=== PATIENT | female | born 1945 | race Caucasian/White ===

== ENCOUNTER 2023-09-17 23:52 | Emergency (ER) | payer OTHER, MEDICARE ==
[2023-09-18] MEDS ORDERED: NA CHLORIDE 0.9% 1,000 ML ONE (00:55)
[2023-09-18 00:56] LABS: Absolute Lymphocytes (CBC) 0.7 K/uL (0.7-4.9); Hematocrit 36.8 % (36.0-45.0); Lymphocytes % 13.1 % (15.3-44.8); MCV 87.4 fL (80-100); MPV 7.8 fL (7.6-11.3); Platelets 133 thou/uL (152-406); RBC Red Blood Cell Count 4.22 M/uL (3.86-4.86)
[2023-09-18 01:05] LABS: Protime INR 1.21
[2023-09-18 01:09] LABS: Specific Gravity 1.026 (1.005-1.030); Urine Bacteria <20 /HPF (<20); Urine Bilirubin NEGATIVE (Negative); Urine Blood Trace (Negative); Urine Clarity Extremely Turbid (Clear); Urine Color Yellow (Yellow); Urine Glucose NEGATIVE (Negative); Urine Mucus 4+ /HPF (None Seen); Urine Protein 1+ (Negative); Urine RBC <5 /HPF (None Seen); Urine Urobilinogen Normal (Normal); Urine pH 5.5 (5.0-7.0)
[2023-09-18 01:15] LABS: Albumin 3.5 g/dL (3.4-5.0); Bilirubin Direct 0.2 mg/dL (0-0.2); Bilirubin Indirect, Calculated 0.5 mg/dL (0.2-0.8); Bilirubin Total 0.7 mg/dL (0.2-1.0); Potassium 3.7 mEq/L (3.5-5.1); Protein, Total 7.8 g/dL (6.4-8.2); Troponin High Sensitivity 12.2 pg/mL (<58.9)
[2023-09-18 01:33] LABS: SARS-COV-2 RT PCR NEGATIVE (NEGATIVE)
[2023-09-18] MEDS ORDERED: ACETAMINOPHEN 500 MG TAB ONE (02:24)
[2023-09-18] MEDS ORDERED: NA CHLORIDE 0.9% 500 ML ONE (03:00)
--- NOTE | 2023-09-18 03:39 | EDPHYS ---
Physician Documentation [facility] Name: Yris Reich Age: 78 yrs Sex: Female : 1945 Arrival Date: 09/17/2023 Time: 23:52 Bed 12 Private MD: ED Physician HPI: 09/18 00:25 This 78 yrs old Female presents to ER via Unassigned with complaints of Fall Injury, sb4 Syncope, Fever, Ear Pain. 00:25 patient reports feeling ill over the past 2-3 days with low grade fever, cough, and ear sb4 pain. states that she has not been eating or drinking as much. she states that this evening she was getting up to go to the bathroom, and had a syncopal episode. she does not think she hit her head. she denies any significant pain, some mild mid back pain. no dizziness, chest pain, sob, nausea, vomiting, diarrhea. Historical: - Allergies: 00:30 Clindamycin; pf1 00:30 Lovenox; pf1 00:30 Levaquin; pf1 00:30 Adhesives; pf1 00:30 Tamoxifen; pf1 00:30 Wasps; pf1 00:30 COVID-19 vaccine, mRNA, [id number], LNP-S ([employer]); pf1 - PMHx: 00:30 breast cancer; Cellulitis; bladder prolapse; Osteoporosis; pf1 - PSHx: 00:30 right breast mastectomy; port a cath; pf1 - Immunization history:: Adult Immunizations not up to date, Client reports having NOT received the Covid vaccine. Last tetanus immunization: > 10 years ago Flu vaccine is not up to date. - Social history:: Smoking status: Patient denies any tobacco usage or history of. Patient/guardian denies using alcohol, street drugs. ROS: 00:25 Cardiovascular: Negative for chest pain, palpitations, and edema, sb4 00:25 Constitutional: Positive for fatigue, fever, malaise, poor PO intake, 00:25 Neuro: Positive for syncope, 00:25 All other systems are negative, Exam: 00:28 Head/Face: Normocephalic, atraumatic. Eyes: Extra-ocular motions intact. Periorbital sb4 areas with no swelling, redness, or edema. ENT: Mucous membranes moist. Cardiovascular: Regular rate and rhythm with a normal S1 and S2. Respiratory: Lungs have equal breath sounds bilaterally, clear to auscultation and percussion. No rales, rhonchi or wheezes noted. No increased work of breathing, no retractions or nasal flaring. Abdomen/GI: Soft, non-tender, no distension. Skin: Warm, dry with normal turgor. Normal color with no rashes, no lesions, and no evidence of cellulitis. MS/ Extremity: Pulses equal, no cyanosis. Neurovascular intact. Full, normal range of motion. Neuro: Awake and alert, GCS 15, oriented to person, place, time, and situation. Motor strength 5/5 in all extremities. Sensory grossly intact. 00:28 Constitutional: The patient appears alert, awake, pale, uncomfortable, 00:51 ENT: TM's: erythema, that is mild, on the right, sb4 Vital Signs: 00:11 BP 112 / 52; Pulse 81; Resp 18; Temp 99.4; Pulse Ox 96% on R/A; Weight 79.83 kg; Height pf1 5 ft. 3 in. ; Pain 5/10; 01:00 BP 117 / 63; Pulse 79; Resp 16; Pulse Ox 94% on R/A; Pain 0/10; pf1 02:00 BP 131 / 64 Supine; Pulse 84; Resp 16; Temp 101; Pulse Ox 92% on R/A; pf1 02:01 BP 117 / 58 Sitting; Pulse 78; Resp 16; Pulse Ox 94% on R/A; pf1 02:02 BP 109 / 65 Standing; Pulse 84; Resp 16; Pulse Ox 93% on R/A; pf1 03:00 BP 108 / 61; Pulse 72; Resp 16; Temp 98.9; Pulse Ox 95% on R/A; Pain 0/10; pf1 00:11 Body Mass Index 31.18 (79.83 kg, 160.02 cm) pf1 00:11 Pain Scale: Adult pf1 01:00 Pain Scale: Adult pf1 03:00 Pain Scale: Adult pf1 MDM: 00:11 Patient medically screened. sb4 00:28 Differential diagnosis: cardiac arrhythmia, pneumonia, covid, flu, dehydration, sb4 electrolyte abnormality. 01:02 Transition of care: Care assumed from Jeannette Stoll PA-C. ED course: Patient signed out ec2 to me by RICH, in brief patient here today for general weakness and a syncopal episode. Plan is to follow-up lab work and reassess the patient.. 01:21 ED course: Reassuring, CBC reassuring without anemia, urine is noninfectious appearing, ec2 troponin within normal ranges. . 01:51 ED course: Patient positive for influenza. Pending CT imaging for this abnormal opacity ec2 noted in right upper lung. . 03:31 ED course: CT scan of the chest shows apical scarring. Will ambulate the patient to 2 evaluate oxygenation. . 03:38 Data reviewed: vital signs. ED course: Patient ambulated without issue, never hypoxic, ec2 saturations in the 90s. Will discharge home with prescription for Tamiflu. Return precautions given.. 09/18 00:21 Order name: Basic Metabolic Panel; Complete Time: :20 sb4 09/18 00:21 Order name: CBC with Diff; Complete Time: : sb4 09/18 00:21 Order name: Hepatic Function; Complete Time: : sb4 09/18 00:21 Order name: Magnesium; Complete Time: : sb4 09/18 00:21 Order name: Protime (+inr); Complete Time: :20 sb4 09/18 00:21 Order name: Ptt, Activated; Complete Time: : sb4 09/18 00:21 Order name: Troponin High Sensitivity; Complete Time: :20 sb4 09/18 00:21 Order name: Urinalysis w/ reflexes; Complete Time: :20 sb4 09/18 00:21 Order name: COVID-19/FLU A+B/RSV; Complete Time: 01:51 sb4 09/18 00:21 Order name: Chest Single View XRAY sb4 09/18 01:30 Order name: CT Chest W/ Con ec2 09/18 00:21 Order name: EKG; Complete Time: 00:22 sb4 09/18 00:21 Order name: Cardiac monitoring; Complete Time: :18 sb4 09/18 00:21 Order name: EKG - Nurse/Tech; Complete Time: 00:33 sb4 09/18 00:21 Order name: IV Saline Lock; Complete Time: 00:49 sb4 09/18 00:21 Order name: Labs collected and sent; Complete Time: 00:49 sb4 09/18 00:21 Order name: NPO; Complete Time: 01:18 sb4 18 00:21 Order name: O2 Per Protocol; Complete Time: 00:49 sb4 09/18 00:21 Order name: O2 Sat Monitoring; Complete Time: 00:49 sb4 09/18 00:21 Order name: Orthostatics; Complete Time: 06:37 sb4 18 01:21 Order name: Vital Signs; Complete Time: 06:37 ec2 EC:32 Rate is 71 beats/min. Rhythm is regular, Normal Sinus Rhythm. IN interval is normal at sb4 158 msec. QRS interval is normal at 98 msec. QT interval is normal at 402 msec. No Q waves. T waves are Normal. No ST changes noted. Clinical impression: Normal ECG. Interpreted by me. Reviewed by me. Administered Medications: 01:00 Drug: NS 0.9% IV 1000 ml IV at 1 bolus Per protocol; 1000 mL bolus Route: IV; Rate: 1 pf1 bolus; Site: left forearm; 02:00 Follow up: Response: No adverse reaction; Marked relief of symptoms; IV Status: pf1 Completed infusion; IV Intake: 1000ml 02:30 Drug: Acetaminophen PO 1000 mg PO once Route: PO; pf1 03:30 Follow up: Response: No adverse reaction; Marked relief of symptoms; Temperature is pf1 decreased 03:10 Drug: NS 0.9% IV 500 ml IV at bolus once Route: IV; Rate: bolus; Site: left forearm; pf1 04:00 Follow up: Response: No adverse reaction; IV Status: Completed infusion; IV Intake: pf1 500ml Disposition: 03:38 I agree with the assessment and plan of care. ec2 17:28 Chart complete. sb4 Disposition Summary: 09/18/23 03:39 Discharge Ordered Notes: Location: Home ec2 Condition: Stable ec2 Diagnosis - Influenza due to identified novel influenza A virus ec2 Followup: ec2 - With: Private Physician - When: - Reason: Recheck today's complaints Discharge Instructions: - Discharge Summary Sheet ec2 - Influenza, Adult ec2 Forms: - Medication Reconciliation Form ec2 - Thank You Letter ec2 - Antibiotic Education ec2 - Prescription Opioid Use ec2 - Patient Portal Instructions ec2 - Leadership Thank You Letter ec2 Prescriptions: - Tamiflu 75 mg Oral capsule - take 1 tablet ORAL route every 12 hours for 5 days; 10 tablet; Refills: 0, ec2 Product Selection Permitted Signatures: Dispatcher [employer] Jeannette Hawkins PA-C PA-C sb4 Bonita Hall RN RN pf1 Fabian Norton MD MD ec2 Corrections: (The following items were deleted from the chart) 01:30 01:21 ED course: Reassuring, CBC reassuring without anemia, urine is noninfectious ec2 appearing, troponin within normal ranges. Chest x-ray independently reviewed and interpreted by me, shows no acute intrathoracic process. . ec2
--- NOTE | 2023-09-18 03:39 | ER ---
Nurse's Notes [facility] Name: Yris Reich Age: 78 yrs Sex: Female : 1945 Arrival Date: 09/17/2023 Time: 23:52 Bed 12 Private MD: Diagnosis: Influenza due to identified novel influenza A virus Presentation: 09/18 00:11 Chief complaint: Patient states: syncopal episode when going to the restroom, fell and pf1 landed to the bathroom floor,onset [employer]. Patient denies any head injury. Patient C/O mid back pain of 5. Patient also C/O cough with runny nose with fever,onset Tuesday of highest temp 103F. Patient denies any chest pain, SOB,nausea or vomiting. 00:11 Coronavirus screen: Vaccine status: Patient reports being unvaccinated. Client denies pf1 travel out of the [place] in the last 14 days. Client presents with at least one sign or symptom that may indicate coronavirus-19. Ebola Screen: Patient negative for fever greater than or equal to 101.5 degrees Fahrenheit, and additional compatible Ebola Virus Disease symptoms. Initial Sepsis Screen: Does the patient meet any 2 criteria? No. Patient's initial sepsis screen is negative. Does the patient have a suspected source of infection? No. Patient's initial sepsis screen is negative. Risk Assessment: Do you want to hurt yourself or someone else? Patient reports no desire to harm self or others. 00:11 Method Of Arrival: Wheelchair pf1 00:11 Acuity: MACARIO 3 pf1 Triage Assessment: 00:11 General: see primary assessment. pf1 Historical: - Allergies: 00:30 Clindamycin; pf1 00:30 Lovenox; pf1 00:30 Levaquin; pf1 00:30 Adhesives; pf1 00:30 Tamoxifen; pf1 00:30 Wasps; pf1 00:30 COVID-19 vaccine, mRNA, [id number], LNP-S ([employer]); pf1 - PMHx: 00:30 breast cancer; Cellulitis; bladder prolapse; Osteoporosis; pf1 - PSHx: 00:30 right breast mastectomy; port a cath; pf1 - Immunization history:: Adult Immunizations not up to date, Client reports having NOT received the Covid vaccine. Last tetanus immunization: > 10 years ago Flu vaccine is not up to date. - Social history:: Smoking status: Patient denies any tobacco usage or history of. Patient/guardian denies using alcohol, street drugs. Screenin:15 [facility] ED Fall Risk Assessment (Adult) History of falling in the last 3 months, pf1 including since admission Yes- single mechanical fall (1 pt) Confusion or Disorientation No (0 pts) Intoxicated or Sedated No (0 pts) Impaired Gait Yes (1 pt) Mobility Assist Device Used No (0 pt) Altered Elimination No (0 pt) Score/Fall Risk Level 0 - 2 = Low Risk Oriented to surroundings, Maintained a safe environment, Educated pt \T\ family on fall prevention, incl call for assistance when getting out of bed, Assessed \T\ reinforced patient's understanding of fall precautions, Provided non-skid footwear, Hourly rounding (assess needs \T\ fall precautionary measures) done, Used ambulatory aids as needed (educated on \T\ assisted with), Used gait belt as appropriate. 00:15 Abuse screen: Denies threats or abuse. Nutritional screening: No deficits noted. pf1 Tuberculosis screening: No symptoms or risk factors identified. Assessment: 00:15 General: Appears in no apparent distress. comfortable, well groomed, well developed, pf1 Behavior is calm, cooperative, appropriate for age, quiet. 00:15 Pain: Complains of pain in back Pain currently is 5 out of 10 on a pain scale. Neuro: pf1 Level of Consciousness is awake, alert, obeys commands, Oriented to person, place, time, situation, Reports a syncopal episode. Cardiovascular: No deficits noted. Capillary refill < 3 seconds Patient's skin is warm and dry. Respiratory: Reports cough that is Airway is patent Respiratory effort is even, unlabored, Respiratory pattern is regular, symmetrical. GI: No deficits noted. No signs and/or symptoms were reported involving the gastrointestinal system. : No deficits noted. No signs and/or symptoms were reported regarding the genitourinary system. EENT: Reports nasal discharge that is watery with fever,onset Tuesday. 01:00 Reassessment: Patient appears in no apparent distress at this time. Patient and/or pf1 family updated on plan of care and expected duration. Pain level reassessed. Patient is alert, oriented x 3, equal unlabored respirations, skin warm/dry/pink. 02:00 Reassessment: Patient appears in no apparent distress at this time. Patient and/or pf1 family updated on plan of care and expected duration. Pain level reassessed. Patient is alert, oriented x 3, equal unlabored respirations, skin warm/dry/pink. Patient states symptoms have improved. 03:00 Reassessment: Patient appears in no apparent distress at this time. Patient and/or pf1 family updated on plan of care and expected duration. Pain level reassessed. Patient is alert, oriented x 3, equal unlabored respirations, skin warm/dry/pink. Patient states feeling better. Patient states symptoms have improved. Vital Signs: 00:11 BP 112 / 52; Pulse 81; Resp 18; Temp 99.4; Pulse Ox 96% on R/A; Weight 79.83 kg; Height pf1 5 ft. 3 in. ; Pain 5/10; 01:00 BP 117 / 63; Pulse 79; Resp 16; Pulse Ox 94% on R/A; Pain 0/10; pf1 02:00 BP 131 / 64 Supine; Pulse 84; Resp 16; Temp 101; Pulse Ox 92% on R/A; pf1 02:01 BP 117 / 58 Sitting; Pulse 78; Resp 16; Pulse Ox 94% on R/A; pf1 02:02 BP 109 / 65 Standing; Pulse 84; Resp 16; Pulse Ox 93% on R/A; pf1 03:00 BP 108 / 61; Pulse 72; Resp 16; Temp 98.9; Pulse Ox 95% on R/A; Pain 0/10; pf1 00:11 Body Mass Index 31.18 (79.83 kg, 160.02 cm) pf1 00:11 Pain Scale: Adult pf1 01:00 Pain Scale: Adult pf1 03:00 Pain Scale: Adult pf1 ED Course: 09/17 23:58 Patient arrived in ED. gm2 09/18 00:00 Jeannette Stoll PA-C is PHCP. sb4 00:00 Fabian Norton MD is Attending Physician. sb4 00:11 Patient has correct armband on for positive identification. Placed in gown. Bed in low pf1 position. Call light in reach. Side rails up X2. 00:11 Arm band placed on left wrist. pf1 00:43 Chest Single View XRAY In Process Unspecified. EDMS 01:00 Basic Metabolic Panel Sent. pm6 01:00 CBC with Diff Sent. pm6 01:00 Hepatic Function Sent. pm6 01:00 Magnesium Sent. pm6 01:00 Protime (+inr) Sent. pm6 01:00 Ptt, Activated Sent. pm6 01:00 Troponin High Sensitivity Sent. pm6 01:00 Urinalysis w/ reflexes Sent. pm6 01:00 Inserted saline lock: 22 gauge in left forearm, using aseptic technique. Blood pm6 collected. 02:00 No provider procedures requiring assistance completed. pf1 02:15 CT Chest W/ Con In Process Unspecified. EDMS 03:45 Provided Education on: prescription. pf1 03:46 Triage completed. pf1 03:51 IV discontinued, intact, bleeding controlled, No redness/swelling at site. Pressure pm6 dressing applied. Administered Medications: 01:00 Drug: NS 0.9% IV 1000 ml IV at 1 bolus Per protocol; 1000 mL bolus Route: IV; Rate: 1 pf1 bolus; Site: left forearm; 02:00 Follow up: Response: No adverse reaction; Marked relief of symptoms; IV Status: pf1 Completed infusion; IV Intake: 1000ml 02:30 Drug: Acetaminophen PO 1000 mg PO once Route: PO; pf1 03:30 Follow up: Response: No adverse reaction; Marked relief of symptoms; Temperature is pf1 decreased 03:10 Drug: NS 0.9% IV 500 ml IV at bolus once Route: IV; Rate: bolus; Site: left forearm; pf1 04:00 Follow up: Response: No adverse reaction; IV Status: Completed infusion; IV Intake: pf1 500ml Medication: 03:00 VIS not applicable for this client. pf1 Intake: 02:00 IV: 1000ml; Total: 1000ml. pf1 04:00 IV: 500ml; Total: 1500ml. pf1 Outcome: 03:39 Discharge ordered by MD. ec2 03:45 Discharged to home via wheelchair, pf1 03:45 Condition: improved pf1 03:45 Discharge instructions given to patient, family, Instructed on discharge instructions, follow up and referral plans. Demonstrated understanding of instructions, follow-up care, medications, Prescriptions given X 1, 03:45 Patient left the ED. pf1 Signatures: Dispatcher [employer] Jeannette Hawkins PA-C PA-C sb4 Bonita Hall RN RN pf1 Fabian Norton MD MD ec2 Alma Parnell gm2 Mag [place]um[place] pm6 Corrections: (The following items were deleted from the chart) 06:23 04:02 Patient left the ED. pf1 pf1
[2023-09-18 04:18] VITALS: BP 112/52; TEMP 99.4; O2SAT 96
--- NOTE | 2023-09-19 10:58 | EKG ---
Test Date: 2023-09-18 Test Time: 00:29:51 Band Top Maker: VINAY MEASUREMENT RESULTS: Intervals: Rate: 71 VA: 158 QRSD: 98 QT: 402 QTc: 436 [place]: P: 56 VA: 158 QRS: -23 T: 42 INTERPRETIVE STATEMENTS: Normal sinus rhythm Normal ECG Compared to ECG 05/09/2009 15:06:22 Sinus bradycardia no longer present Electronically Signed On 09-19-23 10:56:13 DERMATOLOGY PHYSICIAN ASSISTANT by Paddy Brice
--- NOTE | 2023-09-19 11:25 | RAD REPORT ---
EXAM DESCRIPTION: CT - Thorax W/ Con - 09/18/2023 6:43 am CLINICAL HISTORY: RUL opacity COMPARISON: None. TECHNIQUE: CT CHEST WITH IV CONTRAST on 09/18/2023 1:30 AM COLLET MAKING MACHINE OPERATOR. MIPS reconstructions were generated. This exam was performed according to our departmental dose-optimization program, which includes autom ated exposure control, adjustment of the mA and/or kV according to patient size and/or use of iterati ve reconstruction technique. MIP images were generated. FINDINGS: Thoracic aorta is normal in course and caliber without aneurysm or dissection. Pulmonary a rteries are adequately opacified without acute or chronic filling defects. The heart is normal in size. There is no pericardial effusion. Intrathoracic lymph nodes are not enla rged. There is no pleural effusion, pleural thickening or pneumothorax. Central airways are patent. There i s scarring in the anterior right lung apex. There is no focal associated mass. Right mastectomy was p erformed. There are no acute abnormalities within the limited images of the upper abdomen. There are no acute osseous findings. No suspicious bony lesions. IMPRESSION: Right apical pulmonary scarring with no associated mass. Electronically signed by: Robbie Low MD 09/18/2023 03:25 AM COLLET MAKING MACHINE OPERATOR Due to temporary technical issues with the PACS/Fluency reporting system, reports are being signed by the in house radiologist without review as a courtesy to ensure prompt reporting. The interpreting r adiologist is fully responsible for the content of the report.
--- NOTE | 2023-09-19 11:26 | RAD REPORT ---
EXAM DESCRIPTION: RAD - Chest Single View - 09/18/2023 12:41 am CLINICAL HISTORY: CHEST PAIN COMPARISON: None. TECHNIQUE: XR CHEST 1 VIEW 09/18/2023 12:21 AM MERCHANDISE FOR RESALE PURCHASING AGENT FINDINGS: Cardiac silhouette is normal in size. There is a vague right apical opacity. There is no p leural effusion. There is no pneumothorax. There are no acute osseous findings. IMPRESSION: Vague right apical opacity. Recommend CT. Electronically signed by: Robbie Low MD 09/18/2023 01:22 AM MERCHANDISE FOR RES[employer] PURCHASING AGENT Due to temporary technical issues with the PACS/Fluency reporting system, reports are being signed by the in house radiologist without review as a courtesy to ensure prompt reporting. The interpreting r adiologist is fully responsible for the content of the report.
== END 2023-09-18 04:02 | disposition home or self-care (01) ==
LOC: ER 23:52
DX: J10.1 Influenza due to other identified influenza virus with other respiratory manifestations (principal); Z11.52 Encounter for screening for COVID-19; Z28.310 Unvaccinated for COVID-19; Z85.3 Personal history of malignant neoplasm of breast; Z90.11 Acquired absence of right breast and nipple; Z88.1 Allergy status to other antibiotic agents; Z88.3 Allergy status to other anti-infective agents; Z88.7 Allergy status to serum and vaccine; Z88.8 Allergy status to other drugs, medicaments and biological substances; Z91.038 Other insect allergy status; Z91.048 Other nonmedicinal substance allergy status
CPT/HCPCS: 96361; 93005; 71260; 71045; 96360; 99284; Q9967